=== PATIENT | female | born 1985 | race Caucasian/White ===

== ENCOUNTER 2022-04-12 09:26 | Emergency (ER) | payer MEDICAID, OTHER ==
[~2022-04-12] VITALS: Ht 162.6 cm; Wt 75.0 kg
[2022-04-12 10:18] VITALS: BP 122/79
[2022-04-12] MEDS ORDERED: ACETAMINOPHEN 500 MG TAB PO ONE (10:45)
[2022-04-12] MEDS ORDERED: METH750T22 PO (11:16)
== END 2022-04-12 11:25 | disposition home or self-care (01) ==
LOC: EDBD 09:26 → ER 09:29
DX: S46.912A Strain of unspecified muscle, fascia and tendon at shoulder and upper arm level, left arm, initial encounter (principal); S16.1XXA Strain of muscle, fascia and tendon at neck level, initial encounter; S00.83XA Contusion of other part of head, initial encounter; V43.52XA Car driver injured in collision with other type car in traffic accident, initial encounter; Y93.89 Activity, other specified; Y92.89 Other specified places as the place of occurrence of the external cause; Y99.8 Other external cause status
CPT/HCPCS: 70450; 72040; 73030